=== PATIENT | male | born 1945 | race Caucasian/White ===

== ENCOUNTER 2017-02-10 10:17 | Emergency (ER) | payer OTHER ==
[2017-02-10] VITALS (7 sets, daily range): BP systolic 99–137; BP diastolic 53–67; PULSE 48–52; RESP 16–20; TEMP 97.6; O2SAT 97–99
[~2017-02-10] VITALS: Ht 172.7 cm; Wt 90.0 kg
[~2017-02-10 10:17] MED LIST: ACET325 PO; ATOR10 PO; BUTA1CAP8 PO; CARV6.252 PO; CHOL1CAP6 PO; CLON-352 PO; DIVA250ER PO; DUONI NEB; GABA300C3 PO; HYDR-2768 PO; LEVA500T PO; LISI-363 PO; OMEP20TA39 PO; PRED20 PO; TRAZ100 PO; ULTR50TA PO; WARF-60 PO; WELL150T PO; Z.0.OXYGENDME NC; ZOLO50TA PO
--- NOTE | 2017-02-10 10:51 | PD ---
HPI Chief Complaint: Dizziness Time Seen by Provider: 10:51 Travel History International Travel<30 days: No Contact w/Intl Traveler<30days: No Traveled to known affect area: No History of Present Illness HPI 71-year-old male with history of CVA, most recently last week, currently on warfarin, hypertension, COPD, presents to the emergency department for evaluation of acute onset headache at 4 AM this morning that has persisted throughout the day. It has not worsened. Patient was seen and evaluated and his primary care provider's office today and was noted to be quite hypotensive. He was sent here by [facility] for further evaluation of this. Patient states that he has been dizzy and his blood pressure has been running low. Patient does take amlodipine, hydrochlorothiazide, lisinopril, and metoprolol daily. He has taken his medications as prescribed. He denies a chest tightness. No difficulty breathing. No nausea or vomiting. No other symptoms to report. PFSH Past Medical History Hx Anticoagulant Therapy: Yes Arthritis: Yes Cancer: No Cardiovascular Problems: Yes High Cholesterol: Yes Congestive Heart Failure: No COPD: Yes Cerebrovascular Accident: Yes Coronary Artery Disease: No Diabetes: No Diminished Hearing: Yes ([employer] [place]) Endocrine: No Genitourinary: No Headaches: Yes Hypertension: Yes Immune Disorder: No Musculoskeletal: Yes Neurologic: Yes Psychiatric: No Reproductive: No Respiratory: Yes Immunizations Current: No Migraines: Yes Sleep Apnea: Yes Past Surgical History Abdominal Surgery: Yes (JOSEF. INGUINAL,VENTRAL HERNIAPLASTY) Pacemaker: No Other Surgery: Yes (G- TUBE PLACED 02/09/13) Social History Alcohol Use: No (QUIT 10 YEARS AGO) Tobacco Use: No (QUIT 10 YEARS AGO) Substance Use: No Allergies-Medications (Allergen,Severity, Reaction): Coded Allergies: No Known Allergies (Unverified , 02/10/17) Reported Meds & Prescriptions Reported Meds & Active Scripts Active Keflex (Cephalexin) 500 Mg Cap 500 Mg PO Q12H 7 Days Reported Warfarin 7.5 Mg Tab 7.5 Mg PO DAILY Warfarin 5 Mg Tab 5 Mg PO DAILY Trazodone (Trazodone HCl) 100 Mg Tablet 100 Mg PO HS Sertraline (Sertraline HCl) 100 Mg Tab 150 Mg PO DAILY Omeprazole 40 Mg Cap 40 Mg PO DAILY Mirtazapine 7.5 Mg Tab 7.5 Mg PO HS Metoprolol Tartrate 25 Mg Tab 25 Mg PO BID Lisinopril 40 Mg Tab 40 Mg PO DAILY Labetalol (Labetalol HCl) 200 Mg Tab 200 Mg PO DAILY Hydroxyzine HCl 10 Mg Tab 10 Mg PO TID Hydrochlorothiazide 25 Mg Tab 25 Mg PO DAILY Bupropion HCl ER 24 HR (Bupropion HCl) 150 Mg Tab 150 Mg PO DAILY Symbicort Inh (Budesonide/Formoterol Fumarate) 160-4.5 Mcg/Act Aero 2 Puff INH Q12HR Aspirin 81 Mg Chew 81 Mg CHEW DAILY Combivent Respimat Inh (Ipratropium-Albuterol Inh) 20-100 [facility]/Act Aero 1 Puff INH QID Percocet (Oxycodone-Acetaminophen) 5-325 mg Tab 1 Tab PO DAILY PRN Hydrocortisone-Pramoxine Rectal 1-1% Cream 1 Applic RECTAL QID PRN Advair Hfa 12 GM Inh (Fluticasone-Salmeterol 12 GM Inh) 115-21 Mcg/Act Aer 2 Puff INH BID Review of Systems Except as stated in HPI: all other systems reviewed are Neg Physical Exam Narrative GENERAL: Well-nourished male patient, lying in bed, in no acute distress SKIN: Focused skin assessment warm/dry. HEAD: Atraumatic. Normocephalic. EYES: Pupils equal and round. No scleral icterus. No injection or drainage. ENT: No nasal bleeding or discharge. Mucous membranes pink and moist. NECK: Trachea midline. No JVD. CARDIOVASCULAR: Regular rate and rhythm. RESPIRATORY: No accessory muscle use. Clear to auscultation. Breath sounds equal bilaterally. GASTROINTESTINAL: Abdomen soft, non-tender, nondistended. Hepatic and splenic margins not palpable. MUSCULOSKELETAL: No obvious deformities. No clubbing. No cyanosis. No edema. Left-sided weakness on examination. NEUROLOGICAL: Awake and alert. No obvious cranial nerve deficits. Motor grossly within normal limits. Normal speech. PSYCHIATRIC: Appropriate mood and affect; insight and judgment normal. Data Data Last Documented VS Vital Signs Date Time Temp Pulse Resp B/P Pulse Ox O2 Delivery O2 Flow Rate FiO2 02/10/17 15:54 64 17 137/63 97 02/10/17 11:30 Room Air 02/10/17 10:34 97.6 Orders Electrocardiogram (02/10/17 10:49) Prothrombin Time / Inr (Pt) (02/10/17 10:49) Act Partial Throm Time (Ptt) (02/10/17 10:49) Complete Blood Count With Diff (02/10/17 10:49) Comprehensive Metabolic Panel (02/10/17 10:49) Creatine Kinase (Cpk) (02/10/17 10:49) Drug Screen, Random Urine (02/10/17 10:49) Troponin I (02/10/17 10:49) Urinalysis - C+S If Indicated (02/10/17 10:49) Ct Brain W/O Iv Contrast(Rout) (02/10/17 10:49) Chest, Single Ap (02/10/17 10:49) Ecg Monitoring (02/10/17 10:49) Iv Access Insert/Monitor (02/10/17 10:49) Oximetry (02/10/17 10:49) Sodium Chloride 0.9% Flush (Ns Flush) (02/10/17 11:00) Sodium Chlor 0.9% 1000 Ml Inj (Ns 1000 M (02/10/17 11:00) Dexamethasone Inj (Decadron Inj) (02/10/17 11:30) Magnesium Sulfate 1 Gm Premix (Magnesium (02/10/17 12:30) Ketorolac Inj (Toradol Inj) (02/10/17 12:30) Metoclopramide Inj (Reglan Inj) (02/10/17 12:30) Diphenhydramine Inj (Benadryl Inj) (02/10/17 12:30) Orthostatic Vital Signs (02/10/17 12:35) Potassium Chloride (Kcl) (02/10/17 13:00) Urine Culture (02/10/17 13:40) Ceftriaxone Inj (Rocephin Inj) (02/10/17 14:27) Labs Laboratory Tests Test 02/10/17 02/10/17 02/10/17 11:00 11:45 13:40 White Blood Count 7.4 TH/MM3 Red Blood Count 4.15 MIL/MM3 Hemoglobin 12.5 GM/DL Hematocrit 37.6 % Mean Corpuscular Volume 90.7 FL Mean Corpuscular Hemoglobin 30.2 PG Mean Corpuscular Hemoglobin 33.3 % Concent Red Cell Distribution Width 14.3 % Platelet Count 248 TH/MM3 Mean Platelet Volume 7.6 FL Neutrophils (%) (Auto) 49.5 % Lymphocytes (%) (Auto) 32.5 % Monocytes (%) (Auto) 10.8 % Eosinophils (%) (Auto) 3.6 % Basophils (%) (Auto) 3.6 % Neutrophils # (Auto) 3.7 TH/MM3 Lymphocytes # (Auto) 2.4 TH/MM3 Monocytes # (Auto) 0.8 TH/MM3 Eosinophils # (Auto) 0.3 TH/MM3 Basophils # (Auto) 0.3 TH/MM3 CBC Comment DIFF FINAL Differential Comment Prothrombin Time 13.4 SEC Prothromb Time International 1.2 RATIO Ratio Activated Partial 28.3 SEC Thromboplast Time Sodium Level 140 MEQ/L Potassium Level 3.3 MEQ/L Chloride Level 106 MEQ/L Carbon Dioxide Level 24.1 MEQ/L Anion Gap 10 MEQ/L Blood Urea Nitrogen 28 MG/DL Creatinine 1.54 MG/DL Estimat Glomerular Filtration 45 ML/MIN Rate Random Glucose 94 MG/DL Calcium Level 8.8 MG/DL Total Bilirubin 0.3 MG/DL Aspartate Amino Transf 14 U/L (AST/SGOT) Alanine Aminotransferase 24 U/L (ALT/SGPT) Alkaline Phosphatase 52 U/L Total Creatine Kinase 78 U/L Troponin I LESS THAN 0.02 NG/ML Total Protein 7.6 GM/DL Albumin 3.8 GM/DL Urine Color YELLOW Urine Turbidity CLEAR Urine pH 5.5 Urine Specific [place] 1.029 Urine Protein TRACE mg/dL Urine Glucose (UA) NEG mg/dL Urine Ketones NEG mg/dL Urine Occult Blood NEG Urine Nitrite NEG Urine Bilirubin NEG Urine Urobilinogen LESS THAN 2.0 MG/DL Urine Leukocyte Esterase MOD Urine RBC 1 /hpf Urine WBC 9 /hpf Urine Bacteria OCC /hpf Urine Hyaline Casts 14 /lpf Urine Mucus FEW /lpf Microscopic Urinalysis Comment CULTURE INDICATED Urine Opiates Screen NEG Urine Barbiturates Screen POS Urine Amphetamines Screen NEG Urine Benzodiazepines Screen NEG Urine Cocaine Screen NEG Urine Cannabinoids Screen NEG MDM Medical Decision Making Medical Screen Exam Complete: Yes Emergency Medical Condition: Yes Medical Record Reviewed: Yes Differential Diagnosis Hypotension versus fluid deficit versus medication side effect versus sepsis versus electrolyte abnormality Narrative Course 71-year-old male presents to the emergency department for evaluation. Patient appears without distress. He is hypotensive here in the emergency department. Patient was given IV fluids and responds well to this. CBC is without acute concern. CMP is a mild hypokalemia 3.3. BUN is 28 with a creatinine 1.54. Patient was given additional IV fluids. Troponin is less than 0.02. Toxicology is positive for barbiturates. INR subtherapeutic at 1.2. Urinalysis is moderate leukocyte esterase, 9:30 BC, occasional bacteria and few mucus. Last Impressions Head CT 02/10/17 1049 Signed Impressions: Service Date/Time: Friday, February 10, 2017 11:56 - CONCLUSION: 1. No acute hemorrhage, mass or evidence of acute infarction. 2. Stable old lacunar infarcts in the basal ganglia. South Watkins MD Chest X-Ray 02/10/17 1049 Signed Impressions: Service Date/Time: Friday, February 10, 2017 10:56 - CONCLUSION: Streaky opacity the lung bases most consistent with atelectasis. South Watkins MD I discussed the patient my attending physician. Patient will be discharged home on oral antibiotic. He is encouraged to follow-up with his primary care provider. I have spoken with Miss Pan by Dr. Machuca's office and patient has an appointment at 3 PM on Wednesday for follow-up. Patient is informed of this. They agreed return immediately with any acute worsening of symptoms. Diagnosis Primary Impression: Hypotension Qualified Code: I95.9 - Hypotension, unspecified hypotension type Additional Impressions: Dehydration UTI (urinary tract infection) Qualified Code: N39.0 - Urinary tract infection without hematuria, site unspecified Referrals: Primary Care Physician Patient Instructions: Dehydration (ED), General Instructions, Hypotension (ED) Additional Instructions: You have an appointment with Dr. Don on Wednesday at 3:00 PM. Please sign a waiver for medical records to be delivered to Dr. Don prior to this or picked him up from her medical records Intake inadequate oral hydration Start antibiotic tomorrow morning and take it until it is all gone Return immediately with any acute worsening of symptoms Med/Other Pt SpecificInfo: Prescription(s) given Scripts Cephalexin (Keflex)500 Mg [id number] Mg PO Q12H 7 Days Ref 0 Prov:Bessie Hawkins 02/10/17 Disposition: DISCHARGE HOME Condition: Stable Bessie Hawkins Feb 10, 2017 10:51
[2017-02-10] MEDS ORDERED: SODIUM CHLOR 0.9% 1000 ML INJ 1,000 ML IV ONE (11:00)
[2017-02-10] MEDS ORDERED: SODIUM CHLORIDE 0.9% FLUSH 10 ML FLUSH IVF PRN (11:00)
[2017-02-10 11:26] LABS: AUTOMATED NEUTROPHIL # 3.7 TH/MM3 (1.8-7.7); BASOPHIL # 0.3 TH/MM3 (0-0.2); BASOPHIL % 3.6 % (0.0-2.0); EOSINOPHIL # 0.3 TH/MM3 (0-0.4); EOSINOPHIL % 3.6 % (0.0-4.0); HEMATOCRIT 37.6 % (39.0-51.0); HEMO FLAGS DIFF FINAL; LYMPH % 32.5 % (9.0-44.0); LYMPHOCYTE # 2.4 TH/MM3 (1.0-4.8); MEAN CELL VOLUME 90.7 FL (80.0-100.0); MEAN CORPUSCULAR HEMOGLOBIN 30.2 PG (27.0-34.0); MEAN CORPUSCULAR HGB CONC 33.3 % (32.0-36.0); MONO % 10.8 % (0.0-8.0); NEUT % 49.5 % (16.0-70.0); PLATELET COUNT 248 TH/MM3 (150-450); RED BLOOD COUNT 4.15 MIL/MM3 (4.50-5.90); RED CELL DISTRIBUTION WIDTH 14.3 % (11.6-17.2); WHITE BLOOD COUNT 7.4 TH/MM3 (4.0-11.0)
[2017-02-10] MEDS ORDERED: DEXAMETHASONE SOD PHOS 4 MG/ML VIAL IV PUSH ONE (11:30)
[2017-02-10 11:35] LABS: APTT (PATIENT) 28.3 SEC (24.3-30.1); INTERNATIONAL NORMALIZED RATIO 1.2 RATIO; PROTHROMBIN TIME - PATIENT 13.4 SEC (9.8-11.6)
[2017-02-10] MEDS ORDERED: METO25TA3 PO (12:01)
[2017-02-10] MEDS ORDERED: BUPR150T3 PO (12:01)
[2017-02-10] MEDS ORDERED: MIRT1TAB PO (12:01)
[2017-02-10] MEDS ORDERED: WARF-23 PO (12:01)
[2017-02-10] MEDS ORDERED: OMEP40CA2 PO (12:01)
[2017-02-10] MEDS ORDERED: HYDR-755 PO (12:01)
[2017-02-10] MEDS ORDERED: SERT-129 PO (12:01)
[2017-02-10] MEDS ORDERED: LISI40TA PO (12:01)
[2017-02-10] MEDS ORDERED: PERC5TAB12 PO (12:01)
[2017-02-10] MEDS ORDERED: WARF-21 PO (12:01)
[2017-02-10] MEDS ORDERED: HYDR25TA5 PO (12:01)
[2017-02-10] MEDS ORDERED: TRAZ100T6 PO (12:01)
[2017-02-10] MEDS ORDERED: HYDR1CRE RECTAL (12:01)
[2017-02-10] MEDS ORDERED: IPRAAER INH (12:01)
[2017-02-10] MEDS ORDERED: ADVA115A INH (12:01)
[2017-02-10] MEDS ORDERED: LABE200T2 PO (12:01)
[2017-02-10] MEDS ORDERED: ASPI81CH CHEW (12:01)
[2017-02-10] MEDS ORDERED: SYMB160A INH (12:01)
--- NOTE | 2017-02-10 12:11 | RADRPT ---
EXAM DATE/TIME: 02/10/2017 10:56 [facility] COMPARISON: CHEST SINGLE AP, October 11, 2015, 21:17. INDICATIONS : Headache, dizziness, and low blood pressure. MEDICAL HISTORY : Hypertension. Chronic obstructive pulmonary disease. SURGICAL HISTORY : Inguinal hernia repair. G-tube. ENCOUNTER: Initial ACUITY: 2 days PAIN SCORE: 0/10 LOCATION: Bilateral chest FINDINGS: A single view of the chest demonstrates the lungs to be symmetrically aerated without evidence of mas s, confluent infiltrate or effusion. Streaky opacity at the lung bases. The cardiomediastinal contou rs are unremarkable. Osseous structures are intact. CONCLUSION: Streaky opacity the lung bases most consistent with atelectasis. South Watkins MD on February 10, 2017 at 12:09 Board Certified Radiologist. This report was verified electronically.
--- NOTE | 2017-02-10 12:25 | RADRPT ---
EXAM DATE/TIME: 02/10/2017 11:56 [facility] COMPARISON: CT BRAIN W/O CONTRAST, November 06, 2013, 16:39. INDICATIONS : Dizzy, trouble swallowing and headache. RADIATION DOSE: 34.71 CTDIvol (mGy) MEDICAL HISTORY : Cerebrovascular disease. Hypertension. SURGICAL HISTORY : None. ENCOUNTER: Initial ACUITY: 1 day PAIN SCALE: 7/10 LOCATION: cranial TECHNIQUE: Multiple contiguous axial images were obtained of the head. Using automated exposure control and adj ustment of the mA and/or kV according to patient size, radiation dose was kept as low as reasonably a chievable to obtain optimal diagnostic quality images. DICOM format image data is available electro nically for review and comparison. FINDINGS: CEREBRUM: The ventricles are normal for age. No evidence of midline shift, mass lesion, hemorrhage or acute in farction. There are stable old lacunar infarcts in the basal ganglia. No extra-axial fluid collection s are seen. POSTERIOR FOSSA: The cerebellum and brainstem are intact. The 4th ventricle is midline. The cerebellopontine angle i s unremarkable. EXTRACRANIAL: The visualized portion of the orbits is intact. SKULL: The calvaria is intact. No evidence of skull fracture. CONCLUSION: 1. No acute hemorrhage, mass or evidence of acute infarction. 2. Stable old lacunar infarcts in the basal ganglia. South Watkins MD on February 10, 2017 at 12:20 Board Certified Radiologist. This report was verified electronically.
[2017-02-10] MEDS ORDERED: KETOROLAC TROMETHAMINE 30 MG/ML (IVP) VIAL IV PUSH ONE (12:30)
[2017-02-10] MEDS ORDERED: MAGNESIUM SULFATE 1 GM PREMIX 100 ML IV ONE (12:30)
[2017-02-10] MEDS ORDERED: diphenhydrAMINE HCL 50 MG/ML VIAL IV PUSH ONE (12:30)
[2017-02-10] MEDS ORDERED: METOCLOPRAMIDE HCL 10 MG/2 ML VIAL IV PUSH ONE (12:30)
[2017-02-10 12:34] LABS: ALT (GPT) 24 U/L (12-78); ANION GAP 10 MEQ/L (5-15); AST (GOT) 14 U/L (15-37); BICARBONATE 24.1 MEQ/L (21.0-32.0); BLOOD UREA NITROGEN 28 MG/DL (7-18); CHLORIDE 106 MEQ/L (98-107); GLOMERULAR FILTRATION RATE 45 ML/MIN (>89); POTASSIUM 3.3 MEQ/L (3.5-5.1); SODIUM (NA) 140 MEQ/L (136-145)
[2017-02-10 12:38] LABS: ALKALINE PHOSPHATASE 52 U/L (45-117); TOTAL BILIRUBIN ADULT 0.3 MG/DL (0.2-1.0)
[2017-02-10 12:39] LABS: CREATINE KINASE 78 U/L (39-308)
[2017-02-10] MEDS ORDERED: POTASSIUM CHLORIDE 10 MEQ CONTROLLED RELEASE TAB PO ONE (13:00)
[2017-02-10 14:16] LABS: BACTERIA, URINE OCC /hpf; BLOOD, URINE NEG (NEG); COMMENT (UR) CULTURE INDICATED; CULTURE IF INDICATED CULTURE INDICATED; GLUCOSE,URINE NEG (NEG); HYALINE CAST, URINE 14 /lpf (RARE); KETONE, URINE NEG (NEG); MUCUS URINE FEW /lpf (OCC); NITRITE,URINE NEG (NEG); PH, URINE 5.5 (5.0-8.5); URINE COLOR YELLOW (YELLW/STRAW)
[2017-02-10] MEDS ORDERED: cefTRIAXone INJ 1,000 MG in SODIUM CHLORIDE 0.9% INJ 100 ML IV STA (14:27)
[2017-02-10] MEDS ORDERED: CEPH-460 PO (14:37)
--- NOTE | 2017-02-11 09:25 | EKG ---
Date Performed: 02/10/2017 Time Performed: 10:54:44 PTAGE: 71 years EKG: SINUS BRADYCARDIA NONSPECIFIC T-WAVE ABNORMALITY BORDERLINE ECG PREVIOUS TRACING : 10/11/2015 21.08 COMPARED TO THE PREVIOUS EKG SINUS BRADYCARDIA IS NEW DOCTOR: Wes Darenll Interpretating Date/Time 02/11/2017 09:11:19
== END 2017-02-10 16:04 | disposition home or self-care (01) ==
LOC: NEPD 10:17
DX: I95.9 Hypotension, unspecified (principal); E86.0 Dehydration; N39.0 Urinary tract infection, site not specified; R13.10 Dysphagia, unspecified; R00.1 Bradycardia, unspecified; J44.9 Chronic obstructive pulmonary disease, unspecified; I10 Essential (primary) hypertension; J98.11 Atelectasis; E78.00 Pure hypercholesterolemia, unspecified; H91.90 Unspecified hearing loss, unspecified ear; Z79.01 Long term (current) use of anticoagulants
CPT/HCPCS: 70450; 71010; 80053; 80307; 81001; 82550; 84484; 85025; 85610; 85730; 87086; 93005; 96361; 96365; 96367; 96375; 99285; J0696; J1100; J1200; J1885; J2765; J3475; J7030

== ENCOUNTER 2017-09-29 12:43 | Emergency (ER) | payer OTHER ==
[~2017-09-29] VITALS: Ht 170.2 cm; Wt 125.0 kg
[~2017-09-29 12:43] MED LIST changes: -ACET325 PO; +ADVA115A INH; +ASPI-516 CHEW; -ATOR10 PO; +BUPR150T3 PO; -BUTA1CAP8 PO; -CARV6.252 PO; +CEPH-460 PO; -CHOL1CAP6 PO; -CLON-352 PO; -DIVA250ER PO; -DUONI NEB; -GABA300C3 PO; -HYDR-2768 PO; +HYDR-755 PO; +HYDR1CRE RECTAL; +HYDR25TA5 PO; +IPRAAER INH; +LABE200T2 PO; -LEVA500T PO; -LISI-363 PO; +LISI40TA PO; +METO25TA3 PO; +MIRT1TAB PO; -OMEP20TA39 PO; +OMEP40CA2 PO; +PERC5TAB12 PO; -PRED20 PO; +SERT-129 PO; +SYMB160A INH; -TRAZ100 PO; +TRAZ100T10 PO; -ULTR50TA PO; +WARF-21 PO; +WARF-23 PO; -WARF-60 PO; -WELL150T PO; -Z.0.OXYGENDME NC; -ZOLO50TA PO
[2017-09-29 13:00] VITALS: BP 140/81; PULSE 59; RESP 16; TEMP 98; O2SAT 95; O2SAT 97
--- NOTE | 2017-09-29 13:03 | PD ---
HPI Chief Complaint: Psychiatric Symptoms Time Seen by Provider: 12:50 Travel History International Travel<30 days: No Contact w/Intl Traveler<30days: No History of Present Illness HPI 72-year-old male patient of the [place] presents emergency department with suicidal ideation. Patient states chronic severe lower jaw dental pain for months. [facility] and once again they gave him the runaround, and he threatened to kill himself with a gun if they did not help him. [facility] called [facility] who then went and got the patient brought him in under the [place] act. Patient is noted to have a cane, but he denies any other acute medical problems other than his lower dental pain. He states this pain has been chronic for months. Pain is 9 out of 10. He denies any other acute medical issues. He has no known drug allergies. PFSH Past Medical History Hx Anticoagulant Therapy: Yes Arthritis: Yes Cancer: No Cardiovascular Problems: Yes High Cholesterol: Yes Congestive Heart Failure: No COPD: Yes Cerebrovascular Accident: Yes Coronary Artery Disease: No Diabetes: No Diminished Hearing: Yes ([facility]) Endocrine: No Genitourinary: No Headaches: Yes Hypertension: Yes Immune Disorder: No Musculoskeletal: Yes Neurologic: Yes Psychiatric: No Reproductive: No Respiratory: Yes Immunizations Current: No Migraines: Yes Sleep Apnea: Yes Past Surgical History Abdominal Surgery: Yes (JOSEF. INGUINAL,VENTRAL HERNIAPLASTY) Pacemaker: No Other Surgery: Yes (G- TUBE PLACED 02/09/13) Social History Alcohol Use: No (QUIT 10 YEARS AGO) Tobacco Use: No (QUIT 10 YEARS AGO) Substance Use: No Allergies-Medications (Allergen,Severity, Reaction): Coded Allergies: No Known Allergies (Unverified , 02/10/17) Reported Meds & Prescriptions Reported Meds & Active Scripts Active Keflex (Cephalexin) 500 Mg Cap 500 Mg PO Q12H 7 Days Reported Warfarin 7.5 Mg Tab 7.5 Mg PO DAILY Warfarin 5 Mg Tab 5 Mg PO DAILY Trazodone (Trazodone HCl) 100 Mg Tablet 100 Mg PO HS Sertraline (Sertraline HCl) 100 Mg Tab 150 Mg PO DAILY Omeprazole 40 Mg Cap 40 Mg PO DAILY Mirtazapine 7.5 Mg Tab 7.5 Mg PO HS Metoprolol Tartrate 25 Mg Tab 25 Mg PO BID Lisinopril 40 Mg Tab 40 Mg PO DAILY Labetalol (Labetalol HCl) 200 Mg Tab 200 Mg PO DAILY Hydroxyzine HCl 10 Mg Tab 10 Mg PO TID Hydrochlorothiazide 25 Mg Tab 25 Mg PO DAILY Bupropion HCl ER 24 HR (Bupropion HCl) 150 Mg Tab 150 Mg PO DAILY Symbicort Inh (Budesonide/Formoterol Fumarate) 160-4.5 Mcg/Act Aero 2 Puff INH Q12HR Aspirin 81 Mg Chew 81 Mg CHEW DAILY Combivent Respimat Inh (Ipratropium-Albuterol Inh) 20-100 [facility]/Act Aero 1 Puff INH QID Percocet (Oxycodone-Acetaminophen) 5-325 mg Tab 1 Tab PO DAILY PRN Hydrocortisone-Pramoxine Rectal 1-1% Cream 1 Applic RECTAL QID PRN Advair Hfa 12 GM Inh (Fluticasone-Salmeterol 12 GM Inh) 115-21 Mcg/Act Aer 2 Puff INH BID Review of Systems Except as stated in HPI: all other systems reviewed are Neg General / Constitutional: No: Fever, Chills Eyes: No: Visual changes HENT: Positive: Dental Difficulties, No: Headaches, Vertigo, Lightheadedness, Sore Throat, Rhinitis, Rhinorrhea, Congestion, Nosebleed, Neck Stiffness, Neck Pain, Gingival Bleeding, Ear Discharge, Earache Cardiovascular: No: Chest Pain or Discomfort Respiratory: No: Shortness of Breath Gastrointestinal: No: Abdominal Pain Genitourinary: No: Dysuria Musculoskeletal: No: Pain Skin: No Rash Neurologic: No: Weakness Psychiatric: No: Depression Endocrine: No: Polydipsia Hematologic/Lymphatic: No: Easy Bruising Physical Exam Narrative GENERAL: Patient appears somewhat disheveled, and uncomfortable. SKIN: Warm and dry. Normal color. Normal turgor. Patient is a small abrasion to the left dorsal lateral wrist from the handcuffs. HEAD: Atraumatic. Normocephalic. EYES: Pupils equal and round. No scleral icterus. No injection or drainage. ENT: No nasal bleeding or discharge. Mucous membranes pink and moist. Patient has fairly poor dental health with obvious gingivitis without obvious signs of dental infection. Pharynx is clear. Airways patent. NECK: Trachea midline. Supple and nontender without significant lymphadenopathy. CARDIOVASCULAR: Regular rate and rhythm. RESPIRATORY: No accessory muscle use. Clear to auscultation. Breath sounds equal bilaterally. GASTROINTESTINAL: Abdomen soft, non-tender, nondistended. Hepatic and splenic margins not palpable. MUSCULOSKELETAL: Extremities without clubbing, cyanosis, or edema. No obvious deformities. NEUROLOGICAL: Awake and alert. No obvious cranial nerve deficits. Motor grossly within normal limits. Five out of 5 muscle strength in the arms and legs. Normal speech. PSYCHIATRIC: Appropriate mood and affect; insight and judgment normal. Data Data Orders Orders Complete Blood Count With Diff (09/29/17 13:03) Comprehensive Metabolic Panel (09/29/17 13:03) Thyroid Stimulating Hormone (09/29/17 13:03) Psych Screen (09/29/17 13:03) Drug Screen, Random Urine (09/29/17 13:03) Alcohol (Ethanol) (09/29/17 13:03) Acetamin-Hydrocod 325-5 Mg ([place] 5-325 (09/29/17 13:15) Labs Laboratory Tests Test 09/29/17 13:09 White Blood Count 7.6 TH/MM3 Red Blood Count 4.45 MIL/MM3 Hemoglobin 13.3 GM/DL Hematocrit 38.8 % Mean Corpuscular Volume 87.2 FL Mean Corpuscular Hemoglobin 29.9 PG Mean Corpuscular Hemoglobin Concent 34.2 % Red Cell Distribution Width 12.9 % Platelet Count 221 TH/MM3 Mean Platelet Volume 8.1 FL Neutrophils (%) (Auto) 56.8 % Lymphocytes (%) (Auto) 25.8 % Monocytes (%) (Auto) 10.8 % Eosinophils (%) (Auto) 4.6 % Basophils (%) (Auto) 2.0 % Neutrophils # (Auto) 4.3 TH/MM3 Lymphocytes # (Auto) 2.0 TH/MM3 Monocytes # (Auto) 0.8 TH/MM3 Eosinophils # (Auto) 0.3 TH/MM3 Basophils # (Auto) 0.2 TH/MM3 CBC Comment DIFF FINAL Differential Comment Blood Urea Nitrogen 20 MG/DL Creatinine 1.22 MG/DL Random Glucose 104 MG/DL Albumin 4.0 GM/DL Calcium Level 8.9 MG/DL Aspartate Amino Transf (AST/SGOT) 27 U/L Alanine Aminotransferase (ALT/SGPT) 33 U/L Sodium Level 141 MEQ/L Potassium Level 3.6 MEQ/L Chloride Level 107 MEQ/L Carbon Dioxide Level 24.2 MEQ/L Anion Gap 10 MEQ/L Estimat Glomerular Filtration Rate 58 ML/MIN Ethyl Alcohol Level LESS THAN 3 MG/DL MDM Medical Decision Making Medical Screen Exam Complete: Yes Emergency Medical Condition: Yes Differential Diagnosis [place]. Suicidal ideation. Chronic dental pain. Narrative Course Patient is given Lortab 5/325 p.o. now. Labs are ordered per psychiatric protocol. Patient is medically screened for psychiatric evaluation. Psych screen is ordered. Diagnosis Primary Impression: Chronic dental pain Condition: Stable Samson Du Sep 29, 2017 13:03
[2017-09-29] MEDS ORDERED: ACETAMINOPHEN/HYDROcodone 325 MG/5 MG TAB PO ONE (13:15)
[2017-09-29 13:27] LABS: AUTOMATED NEUTROPHIL # 4.3 TH/MM3 (1.8-7.7); BASOPHIL # 0.2 TH/MM3 (0-0.2); EOSINOPHIL # 0.3 TH/MM3 (0-0.4); EOSINOPHIL % 4.6 % (0.0-4.0); HEMATOCRIT 38.8 % (39.0-51.0); HEMOGLOBIN 13.3 GM/DL (13.0-17.0); LYMPH % 25.8 % (9.0-44.0); MEAN CELL VOLUME 87.2 FL (80.0-100.0); MEAN CORPUSCULAR HEMOGLOBIN 29.9 PG (27.0-34.0); MEAN CORPUSCULAR HGB CONC 34.2 % (32.0-36.0); MEAN PLATELET VOLUME 8.1 FL (7.0-11.0); MONO % 10.8 % (0.0-8.0); MONOCYTE # 0.8 TH/MM3 (0-0.9); NEUT % 56.8 % (16.0-70.0); PLATELET COUNT 221 TH/MM3 (150-450); RED BLOOD COUNT 4.45 MIL/MM3 (4.50-5.90); RED CELL DISTRIBUTION WIDTH 12.9 % (11.6-17.2); WHITE BLOOD COUNT 7.6 TH/MM3 (4.0-11.0)
[2017-09-29 13:45] LABS: AST (GOT) 27 U/L (15-37); BICARBONATE 24.2 MEQ/L (21.0-32.0); BLOOD UREA NITROGEN 20 MG/DL (7-18); CALCIUM 8.9 MG/DL (8.5-10.1); CHLORIDE 107 MEQ/L (98-107); CREATININE 1.22 MG/DL (0.60-1.30); GLOMERULAR FILTRATION RATE 58 ML/MIN (>89); GLUCOSE,RANDOM 104 MG/DL (74-106); SODIUM (NA) 141 MEQ/L (136-145)
[2017-09-29 13:46] LABS: ALT (GPT) 33 U/L (12-78)
[2017-09-29 13:56] LABS: ALKALINE PHOSPHATASE 56 U/L (45-117); TOTAL BILIRUBIN ADULT 0.5 MG/DL (0.2-1.0); TOTAL PROTEIN 7.2 GM/DL (6.4-8.2)
[2017-09-29] MEDS ORDERED: TRAM50TA PO (16:57)
[2017-09-29] MEDS ORDERED: PENI500T PO (16:57)
--- NOTE | 2017-09-29 17:24 | PD ---
Data Data Last Documented VS Vital Signs Date Time Temp Pulse Resp B/P (MAP) Pulse Ox O2 Delivery O2 Flow Rate FiO2 09/29/17 13:00 98.0 59 16 140/81 (100) 95 Orders Orders Complete Blood Count With Diff (09/29/17 13:03) Comprehensive Metabolic Panel (09/29/17 13:03) Thyroid Stimulating Hormone (09/29/17 13:03) Psych Screen (09/29/17 13:03) Alcohol (Ethanol) (09/29/17 13:03) Acetamin-Hydrocod 325-5 Mg ([place] 5-325 (09/29/17 13:15) Ed Discharge Order (09/29/17 17:08) Labs Laboratory Tests Test 09/29/17 13:09 White Blood Count 7.6 TH/MM3 Red Blood Count 4.45 MIL/MM3 Hemoglobin 13.3 GM/DL Hematocrit 38.8 % Mean Corpuscular Volume 87.2 FL Mean Corpuscular Hemoglobin 29.9 PG Mean Corpuscular Hemoglobin Concent 34.2 % Red Cell Distribution Width 12.9 % Platelet Count 221 TH/MM3 Mean Platelet Volume 8.1 FL Neutrophils (%) (Auto) 56.8 % Lymphocytes (%) (Auto) 25.8 % Monocytes (%) (Auto) 10.8 % Eosinophils (%) (Auto) 4.6 % Basophils (%) (Auto) 2.0 % Neutrophils # (Auto) 4.3 TH/MM3 Lymphocytes # (Auto) 2.0 TH/MM3 Monocytes # (Auto) 0.8 TH/MM3 Eosinophils # (Auto) 0.3 TH/MM3 Basophils # (Auto) 0.2 TH/MM3 CBC Comment DIFF FINAL Differential Comment Blood Urea Nitrogen 20 MG/DL Creatinine 1.22 MG/DL Random Glucose 104 MG/DL Total Protein 7.2 GM/DL Albumin 4.0 GM/DL Calcium Level 8.9 MG/DL Alkaline Phosphatase 56 U/L Aspartate Amino Transf (AST/SGOT) 27 U/L Alanine Aminotransferase (ALT/SGPT) 33 U/L Total Bilirubin 0.5 MG/DL Sodium Level 141 MEQ/L Potassium Level 3.6 MEQ/L Chloride Level 107 MEQ/L Carbon Dioxide Level 24.2 MEQ/L Anion Gap 10 MEQ/L Estimat Glomerular Filtration Rate 58 ML/MIN Thyroid Stimulating Hormone 3rd Gen 2.740 uIU/ML Ethyl Alcohol Level LESS THAN 3 MG/DL [facility] Medical Record Reviewed: Yes Supervised Visit with GERTRUDE: Yes Narrative Course BA lifted by undersigned. scrips as below for dental complaints. Diagnosis Primary Impression: Chronic dental pain Referrals: [facility] ([facility]P) Patient Instructions: General Instructions, Toothache (ED) Departure Forms: Tests/Procedures Scripts Penicillin V Potassium (Penicillin V Potassium) 500 Mg Tab 500 MG PO Q8H for Infection for 7 Days, #21 TAB 0 Refills Prov: Choco Cornelius MD 09/29/17 Tramadol (Tramadol) 50 Mg Tab 100 MG PO Q6H Y for PAIN, #15 TAB 0 Refills Prov: Choco Cornelius MD 09/29/17 Condition: Stable Choco Cornelius MD Sep 29, 2017 17:24
--- NOTE | 2017-09-29 17:45 | PD ---
History of Present Illness Chief Complaint: Adjustment disorder Time Seen by Provider: 17:00 Travel History International Travel<30 Days: No Contact w/Intl Traveler<30days: No Known affected area: No Legal Status Legal Status: [place] Act History of Present Illness: This 72-year-old, , white male who presents under a [place] act for uttering a suicidal threat. Patient states that he has had a toothache for quite some time [facility]. He states that out of frustration he told them that if they "did not give me something for the pain I was going to shoot myself". His is present in the room with him they both report that he has made repeated attempts to try to deal with the dental pain to no avail. Patient reports previous diagnoses of PTSD. He denies being suicidal, homicidal, having auditory or visual hallucinations. I can elicit no delusional material. He is awake, alert, and oriented. His speech is muffled presumably due to his tooth pain however, he is perfectly understandable. His speech is logical and organized. His mood is anxious and his affect also is anxious again, due to the tooth pain. He states that he is "disgusted" with the treatment he has received from the [place] in regards to this malady. His reports that his firearm has been removed from the home. He denies any previous attempts at suicide. Patient evaluated by Dr. Cornelius who agrees that this patient does not meet Talam[place] act criteria and has lifted it. Patient will be provided with community dental resources. Furthermore, he is advised to return if his condition should worsen. PFSH Past Medical History Hx Anticoagulant Therapy: Yes Arthritis: Yes Cancer: No Cardiovascular Problems: Yes High Cholesterol: Yes Congestive Heart Failure: No COPD: Yes Cerebrovascular Accident: Yes Coronary Artery Disease: No Diabetes: No Diminished Hearing: Yes ([place]) Endocrine: No Genitourinary: No Headaches: Yes Hypertension: Yes Immune Disorder: No Musculoskeletal: Yes Neurologic: Yes Psychiatric: No Reproductive: No Respiratory: Yes Immunizations Current: No Migraines: Yes Sleep Apnea: Yes Past Surgical History Abdominal Surgery: Yes (JOSEF. INGUINAL,VENTRAL HERNIAPLASTY) Pacemaker: No Other Surgery: Yes (G- TUBE PLACED 02/09/13) Psychiatric History Psychiatric History Previous diagnosis of PTSD Guns or firearms in home: No (Removed from the home) Social History Lives with Hx Alcohol Use: No (QUIT 10 YEARS AGO) Hx Tobacco Use: No (QUIT 10 YEARS AGO) Hx Substance Use: No Allergies-Medications (Allergen,Severity, Reaction): Coded Allergies: No Known Allergies (Unverified , 02/10/17) Reported Meds & Prescriptions Reported Meds & Active Scripts Active Penicillin V Potassium 500 Mg Tab 500 Mg PO Q8H 7 Days Tramadol (Tramadol HCl) 50 Mg Tab 100 Mg PO Q6H PRN Keflex (Cephalexin) 500 Mg Cap 500 Mg PO Q12H 7 Days Reported Warfarin 7.5 Mg Tab 7.5 Mg PO DAILY Warfarin 5 Mg Tab 5 Mg PO DAILY Trazodone (Trazodone HCl) 100 Mg Tablet 100 Mg PO HS Sertraline (Sertraline HCl) 100 Mg Tab 150 Mg PO DAILY Omeprazole 40 Mg Cap 40 Mg PO DAILY Mirtazapine 7.5 Mg Tab 7.5 Mg PO HS Metoprolol Tartrate 25 Mg Tab 25 Mg PO BID Lisinopril 40 Mg Tab 40 Mg PO DAILY Labetalol (Labetalol HCl) 200 Mg Tab 200 Mg PO DAILY Hydroxyzine HCl 10 Mg Tab 10 Mg PO TID Hydrochlorothiazide 25 Mg Tab 25 Mg PO DAILY Bupropion HCl ER 24 HR (Bupropion HCl) 150 Mg Tab 150 Mg PO DAILY Symbicort Inh (Budesonide/Formoterol Fumarate) 160-4.5 Mcg/Act Aero 2 Puff INH Q12HR Aspirin 81 Mg Chew 81 Mg CHEW DAILY Combivent Respimat Inh (Ipratropium-Albuterol Inh) 20-100 Correction/Act Aero 1 Puff INH QID Percocet (Oxycodone-Acetaminophen) 5-325 mg Tab 1 Tab PO DAILY PRN Hydrocortisone-Pramoxine Rectal 1-1% Cream 1 Applic RECTAL QID PRN Advair Hfa 12 GM Inh (Fluticasone-Salmeterol 12 GM Inh) 115-21 Mcg/Act Aer 2 Puff INH BID Mental Status Examination Appearance: Appropriate Consciousness: Alert Orientation: x4 Motor Activity: Other (Sitting in chair) Speech: Other (Slightly garbled due to teeth pain) Language: Adequate Fund of Knowledge: Adequate Attention and Concentration: Adequate Memory: Unremarkable Mood: Anxious (Due to pain) Affect: Anxious (Due to dental pain) Thought Process & Associations: Intact Thought Content: Appropriate Hallucination Type: None Delusion Type: None Suicidal Ideation: No Suicidal Plan: No Suicidal Intention: No Homicidal Ideation: No Homicidal Plan: No Homicidal Intention: No Insight: Adequate Judgment: Adequate MDM Medical Decision Making Medical Record Reviewed: Yes Assessment/Plan This is a 72-year-old, , male who is brought in under Talam[place] act after uttering a suicidal threat while [facility] the [facility]. Patient states that he has been an extreme pain due to dental caries for quite some time. He reports that [facility] the [facility] today and attempt to get a resolution to his problem and was "once again given the run around". He admits to telling them that if they did not give him pain medicine he would shoot himself with his gun out of frustration. Patient lives with his . Denies any previous attempts at suicide. Does admit to a history of PTSD. His reports that she has removed a firearm from the home. Consulted Dr. Cornelius who evaluated this patient and lifted the Talam[place] act as he does not meet Talamantes act criteria, and does not appear to be an imminent danger to himself or anyone else. Patient provided with community resources for dental clinics as well as appropriate medication by medical staff. Patient advised to return if his condition should worsen. Orders Orders Complete Blood Count With Diff (09/29/17 13:03) Comprehensive Metabolic Panel (09/29/17 13:03) Thyroid Stimulating Hormone (09/29/17 13:03) Psych Screen (09/29/17 13:03) Drug Screen, Random Urine (09/29/17 13:03) Alcohol (Ethanol) (09/29/17 13:03) Acetamin-Hydrocod 325-5 Mg ([place] 5-325 (09/29/17 13:15) Ed Discharge Order (09/29/17 17:08) Results Vital Signs Date Time Temp Pulse Resp B/P (MAP) Pulse Ox O2 Delivery O2 Flow Rate FiO2 09/29/17 13:00 98.0 59 16 140/81 (100) 95 Laboratory Tests Test 4/4/18 13:09 White Blood Count 7.6 Red Blood Count 4.45 Hemoglobin 13.3 Hematocrit 38.8 Mean Corpuscular Volume 87.2 Mean Corpuscular Hemoglobin 29.9 Mean Corpuscular Hemoglobin Concent 34.2 Red Cell Distribution Width 12.9 Platelet Count 221 Mean Platelet Volume 8.1 Neutrophils (%) (Auto) 56.8 Lymphocytes (%) (Auto) 25.8 Monocytes (%) (Auto) 10.8 Eosinophils (%) (Auto) 4.6 Basophils (%) (Auto) 2.0 Neutrophils # (Auto) 4.3 Lymphocytes # (Auto) 2.0 Monocytes # (Auto) 0.8 Eosinophils # (Auto) 0.3 Basophils # (Auto) 0.2 CBC Comment DIFF FINAL Differential Comment Blood Urea Nitrogen 20 Creatinine 1.22 Random Glucose 104 Total Protein 7.2 Albumin 4.0 Calcium Level 8.9 Alkaline Phosphatase 56 Aspartate Amino Transf (AST/SGOT) 27 Alanine Aminotransferase (ALT/SGPT) 33 Total Bilirubin 0.5 Sodium Level 141 Potassium Level 3.6 Chloride Level 107 Carbon Dioxide Level 24.2 Anion Gap 10 Estimat Glomerular Filtration Rate 58 Thyroid Stimulating Hormone 3rd Gen 2.740 Ethyl Alcohol Level LESS THAN 3 Diagnosis Primary Impression: Adjustment disorder with anxious mood Additional Impression: Chronic dental pain Psychiatrically Cleared: Yes Referrals: [facility] ([facility] Departure Forms: Tests/Procedures Patient Instructions: General Instructions, Toothache (ED) Prescriptions Penicillin V Potassium (Penicillin V Potassium) 500 Mg Tab 500 MG PO Q8H for Infection for 7 Days, #21 TAB 0 Refills Prov: Choco Cornelius MD 09/29/17 Tramadol (Tramadol) 50 Mg Tab 100 MG PO Q6H Y for PAIN, #15 TAB 0 Refills Prov: Choco Cornelius MD 09/29/17 Condition: Stable Problem Qualifiers Maria Isabel Moeller Sep 29, 2017 17:45
== END 2017-09-29 17:13 | disposition home or self-care (01) ==
LOC: NEPD 12:43
DX: F43.22 Adjustment disorder with anxiety (principal); K08.89 Other specified disorders of teeth and supporting structures; G89.29 Other chronic pain; I10 Essential (primary) hypertension; E78.00 Pure hypercholesterolemia, unspecified; J44.9 Chronic obstructive pulmonary disease, unspecified; F43.10 Post-traumatic stress disorder, unspecified; Z86.73 Personal history of transient ischemic attack (TIA), and cerebral infarction without residual deficits; Z87.891 Personal history of nicotine dependence; Z79.01 Long term (current) use of anticoagulants; Z79.899 Other long term (current) drug therapy
CPT/HCPCS: 80053; 80307; 84443; 85025; 99283

== ENCOUNTER 2017-11-02 21:17 | Emergency (ER) | payer OTHER ==
[2017-11-02 22:36] LABS: HEMATOCRIT 37.9 % (39.0-51.0); HEMOGLOBIN 13.1 GM/DL (13.0-17.0); MEAN CORPUSCULAR HEMOGLOBIN 30.5 PG (27.0-34.0); MEAN CORPUSCULAR HGB CONC 34.6 % (32.0-36.0); MEAN PLATELET VOLUME 8.5 FL (7.0-11.0); PLATELET COUNT 301 TH/MM3 (150-450); WHITE BLOOD COUNT 9.1 TH/MM3 (4.0-11.0)
[2017-11-02 22:38] LABS: HEMO FLAGS AUTO DIFF
[2017-11-02 22:54] LABS: LACTIC ACID 1.2 mmol/L (0.4-2.0)
[2017-11-02 22:59] LABS: ALBUMIN 3.8 GM/DL (3.4-5.0); ALT (GPT) 27 U/L (12-78); ANION GAP 7 MEQ/L (5-15); APTT (PATIENT) 29.6 SEC (24.3-30.1); AST (GOT) 20 U/L (15-37); BICARBONATE 25.9 MEQ/L (21.0-32.0); BLOOD UREA NITROGEN 17 MG/DL (7-18); CALCIUM 8.2 MG/DL (8.5-10.1); CHLORIDE 109 MEQ/L (98-107); CREATININE 1.22 MG/DL (0.60-1.30); GLOMERULAR FILTRATION RATE 58 ML/MIN (>89); GLUCOSE,RANDOM 101 MG/DL (74-106); INTERNATIONAL NORMALIZED RATIO 1.5 RATIO; LIPASE 109 U/L (73-393); POTASSIUM 3.8 MEQ/L (3.5-5.1); PROTHROMBIN TIME - PATIENT 15.6 SEC (9.8-11.6); SODIUM (NA) 142 MEQ/L (136-145)
[2017-11-02 23:04] LABS: ALKALINE PHOSPHATASE 60 U/L (45-117); C-REACTIVE PROTEIN 0.86 MG/DL (0.00-0.30); TOTAL BILIRUBIN ADULT 0.5 MG/DL (0.2-1.0); TOTAL PROTEIN 7.3 GM/DL (6.4-8.2); TROPONIN I LESS THAN 0.02 NG/ML (0.02-0.05)
[2017-11-02 23:16] LABS: BASOPHILS 2 % (0-2); EOSINOPHILS 3 % (0-4); MONOCYTES 8 % (0-8); NEUTROPHIL # MANUAL DIFF 5.5 TH/MM3 (1.8-7.7); POLYS (SEG NEUTROPHILS) 60 % (16-70); WBC DIFF SAMPLE 100
[2017-11-02 23:17] LABS: LYMPHOCYTES 27 % (9-44); PLATELET ESTIMATE SMEAR NORMAL (NORMAL); PLATELET MORPHOLOGY NORMAL (NORMAL); SCAN/DIFF FINAL DIFF MANUAL
[2017-11-02] MEDS: SODIUM CHLOR 0.9% 250 ML INJ 250 ML IV (23:18)
[2017-11-02] MEDS: AMOXICILLIN/CLAVULANATE K 875 MG TAB PO (23:21)
[2017-11-02] MEDS: MORPHINE SULFATE 4 MG/ML INJ IV PUSH (23:21)
[2017-11-02] MEDS: ONDANSETRON HCL 4 MG/2 ML VIAL IV PUSH (23:21)
[2017-11-03] MEDS: IOHEXOL 350 MG/ML 10 ML VIAL (for RAD DIAG) IVCONTRAST (00:44)
[2017-11-03 00:48] LABS: BILIRUBIN, URINE NEG (NEG); BLOOD, URINE NEG (NEG); GLUCOSE,URINE NEG (NEG); KETONE, URINE NEG (NEG); MUCUS URINE FEW /lpf (OCC); NITRITE,URINE NEG (NEG); PH, URINE 5.5 (5.0-8.5); SQUAMOUS EPITHELIAL CELL URINE <1 /hpf (0-5); URINE COLOR YELLOW (YELLW/STRAW); URINE LEUKOCYTE ESTERASE TRACE (NEG)
[2017-11-03 00:49] LABS: COMMENT (UR) CULT NOT INDICATED; CULTURE IF INDICATED CULT NOT INDICATED
== END 2017-11-03 02:02 | disposition home or self-care (01) ==
LOC: NEPE 11-03 02:02
DX: K05.10 Chronic gingivitis, plaque induced (principal); K02.9 Dental caries, unspecified; K43.9 Ventral hernia without obstruction or gangrene; K76.0 Fatty (change of) liver, not elsewhere classified; J44.9 Chronic obstructive pulmonary disease, unspecified; I10 Essential (primary) hypertension; E78.00 Pure hypercholesterolemia, unspecified; E78.5 Hyperlipidemia, unspecified; Z86.73 Personal history of transient ischemic attack (TIA), and cerebral infarction without residual deficits; Z87.891 Personal history of nicotine dependence; Z79.82 Long term (current) use of aspirin; Z79.01 Long term (current) use of anticoagulants; Z79.899 Other long term (current) drug therapy
CPT/HCPCS: 71045; 74177; 80053; 81001; 83605; 83690; 84484; 85007; 85027; 85610; 85730; 86140; 96361; 96374; 96375; 99285-25

== ENCOUNTER 2017-11-30 11:32 | Emergency (ER) | payer OTHER ==
[~2017-11-30 11:32] MED LIST changes: +AUGM875T3 PO; -CEPH-460 PO; +HYDR-3516 PO; -LABE200T2 PO; -PERC5TAB12 PO; +TRAM50TA PO
[2017-11-30 11:42] VITALS: BP 110/86; PULSE 62; RESP 16; TEMP 98.7; O2SAT 91
[2017-11-30 12:02] VITALS: BP 106/58; PULSE 53; RESP 18; O2SAT 97
[2017-11-30] MEDS ORDERED: PIPERACIL-TAZO 4.5 GM PREMIX 100 ML IV STA (12:02)
[2017-11-30 12:10] VITALS: RESP 18; O2SAT 95
[2017-11-30] MEDS ORDERED: MORPHINE SULFATE 4 MG/ML INJ IV PUSH ONE (12:15)
[2017-11-30 12:30] LABS: AUTOMATED NEUTROPHIL # 6.3 TH/MM3 (1.8-7.7); BASOPHIL # 0.1 TH/MM3 (0-0.2); BASOPHIL % 1.2 % (0.0-2.0); EOSINOPHIL # 0.4 TH/MM3 (0-0.4); HEMATOCRIT 36.7 % (39.0-51.0); HEMOGLOBIN 12.2 GM/DL (13.0-17.0); LYMPH % 20.4 % (9.0-44.0); MEAN CELL VOLUME 88.1 FL (80.0-100.0); MEAN CORPUSCULAR HEMOGLOBIN 29.3 PG (27.0-34.0); MEAN CORPUSCULAR HGB CONC 33.3 % (32.0-36.0); MEAN PLATELET VOLUME 8.1 FL (7.0-11.0); MONOCYTE # 1.2 TH/MM3 (0-0.9); NEUT % 62.4 % (16.0-70.0); PLATELET COUNT 211 TH/MM3 (150-450); RED BLOOD COUNT 4.17 MIL/MM3 (4.50-5.90); RED CELL DISTRIBUTION WIDTH 13.5 % (11.6-17.2)
--- NOTE | 2017-11-30 12:43 | PD ---
HPI Chief Complaint: Oral / Dental Pain or Problem Time Seen by Provider: 12:02 Travel History International Travel<30 days: No Contact w/Intl Traveler<30days: No Traveled to known affect area: No History of Present Illness HPI 72-year-old male notes right lower facial pain and swelling for the past couple of days. He called his primary doctor yesterday who started him on clindamycin. He states the pain and swelling of gotten worse. He denies any vomiting or fever or other concurrent complaints. Quality pain is sharp. Severity severe per patient. He denies specific modifying factors at this time other than if you touch the area. PFSH Past Medical History Hx Anticoagulant Therapy: Yes Arthritis: Yes Cancer: No Cardiovascular Problems: Yes High Cholesterol: Yes Congestive Heart Failure: No COPD: Yes Cerebrovascular Accident: Yes Coronary Artery Disease: No Diabetes: No Diminished Hearing: Yes ([place]) Endocrine: No Gastrointestinal Disorders: No Genitourinary: No Headaches: Yes Hypertension: Yes Immune Disorder: No Implanted Vascular Access Dvce: No Musculoskeletal: Yes Neurologic: Yes Psychiatric: No Reproductive: No Respiratory: Yes Immunizations Current: No Migraines: Yes Sleep Apnea: Yes (does wear cpap) Past Surgical History Abdominal Surgery: Yes (JOSEF. INGUINAL,VENTRAL HERNIAPLASTY) Pacemaker: No Other Surgery: Yes (G- TUBE PLACED 02/09/13) Social History Alcohol Use: No (QUIT 10 YEARS AGO) Tobacco Use: No (QUIT 10 YEARS AGO) Substance Use: No Allergies-Medications (Allergen,Severity, Reaction): Coded Allergies: No Known Allergies (Unverified Adverse Reaction, Unknown, 11/02/17) Reported Meds & Prescriptions Reported Meds & Active Scripts Active Augmentin (Amoxicillin-Clavulanate) 875-125 Mg Tab 1 Tab PO BID 7 Days Hydrocodone-Acetaminophen 5-325 mg Tab 1 Tab PO Q6H PRN Reported Prazosin (Prazosin HCl) 2 Mg Cap 6 Mg PO HS Get up slowly to prevent falls Magnesium Oxide 400 Mg Tab 400 Mg PO BID Gabapentin 800 Mg Tab 400 Mg PO TID Diclofenac Topical 1% Gel 1 Applic TOPICAL TID Vitamin D-1000 (Cholecalciferol) 1,000 Unit Tab 1,000 Units PO DAILY Capsaicin Topical (Capsaicin) 0.025% Cream 1 Applic TOPICAL BID Apply to affected area on skin for joint pain-Do not use for skin problem-Avoid contact with eyes-Wash hands thoroughly after each use Lipitor (Atorvastatin Calcium) 40 Mg Tab 20 Mg PO HS Artificial Tears Opth Drops (Polyvinyl Alcohol) 1.4% Soln 2 Drop EACH EYE QID PRN Salivamax Powder Packet (Artificial Saliva Powder Packet) 1 Powderpack 1 Pkt SWISH-SPIT DIRECTED Norvasc (Amlodipine Besylate) 10 Mg Tab 10 Mg PO DAILY Ventolin Hfa 18 GM Inh (Albuterol Sulfate) 90 Mcg/Act Aer 2 Puff INH Q4H PRN Duoneb (Ipratropium-Albuterol Neb) 0.5-2.5 Mg/3 Ml Neb 3 Ml NEB QID PRN Warfarin 5 Mg Tab 7.5 Mg PO WEDNESDAY Omeprazole 20 Mg Tab 20 Mg PO DAILY PRN Mirtazapine 15 Mg Tab 15 Mg PO HS Warfarin 5 Mg Tab 5 Mg PO SUMOTUTHFRSA Take 1 tablet (5mg) daily excepts on Wednesdays Sertraline (Sertraline HCl) 100 Mg Tab 200 Mg PO DAILY Metoprolol Tartrate 25 Mg Tab 12.5 Mg PO BID Lisinopril 40 Mg Tab 20 Mg PO DAILY Hydroxyzine HCl 10 Mg Tab 20 Mg PO TID PRN May repeat dose after 25 minutes if no relief-can cause sedation Hydrochlorothiazide 25 Mg Tab 25 Mg PO DAILY Symbicort Inh (Budesonide/Formoterol Fumarate) 160-4.5 Mcg/Act Aero 2 Puff INH Q12HR Review of Systems Except as stated in HPI: all other systems reviewed are Neg Physical Exam Narrative GENERAL: 72-year-old male in no apparent distress SKIN: Focused skin assessment warm/dry. HEAD: Atraumatic. Moderate amount of swelling noted to right lower face without overlying cellulitis EYES: Pupils equal and round. No scleral icterus. No injection or drainage. ENT: No nasal bleeding or discharge. Mucous membranes pink and moist. Patient with multiple poor dentition. Especially to lower teeth without obvious periapical abscess NECK: Trachea midline. CARDIOVASCULAR: Regular rate and rhythm. RESPIRATORY: No accessory muscle use. Clear to auscultation. Breath sounds equal bilaterally. MUSCULOSKELETAL: No obvious deformities. No clubbing. No cyanosis. NEUROLOGICAL: Awake and alert. No obvious cranial nerve deficits. Motor grossly within normal limits. Normal speech. PSYCHIATRIC: Appropriate mood and affect; insight and judgment normal. Data Data Last Documented VS Vital Signs Date Time Temp Pulse Resp B/P (MAP) Pulse Ox O2 Delivery O2 Flow Rate FiO2 11/30/17 12:10 18 95 Nasal Cannula 2.00 11/30/17 12:02 53 11/30/17 11:42 98.7 92 on room air with h/o copd Orders Orders Ct Facial Bones W Iv Contrast (11/30/17 ) Complete Blood Count With Diff (11/30/17 12:02) Comprehensive Metabolic Panel (11/30/17 12:02) Lactic Acid Sepsis Protocol (11/30/17 12:02) Chest, Single Ap (11/30/17 12:02) Ecg Monitoring (11/30/17 12:02) Iv Access Insert/Monitor (11/30/17 12:02) Oximetry (11/30/17 12:02) Piperacil-Tazo 4.5 Gm Premix (Zosyn 4.5 (11/30/17 12:02) Morphine Inj (Morphine Inj) (11/30/17 12:15) Iohexol 350 Inj (Omnipaque 350 Inj) (11/30/17 13:20) Sodium Chlor 0.9% 1000 Ml Inj (Ns 1000 M (11/30/17 13:30) Ed Discharge Order (11/30/17 14:05) Labs Laboratory Tests Test 11/30/17 12:16 White Blood Count 10.0 TH/MM3 Red Blood Count 4.17 MIL/MM3 Hemoglobin 12.2 GM/DL Hematocrit 36.7 % Mean Corpuscular Volume 88.1 FL Mean Corpuscular Hemoglobin 29.3 PG Mean Corpuscular Hemoglobin Concent 33.3 % Red Cell Distribution Width 13.5 % Platelet Count 211 TH/MM3 Mean Platelet Volume 8.1 FL Neutrophils (%) (Auto) 62.4 % Lymphocytes (%) (Auto) 20.4 % Monocytes (%) (Auto) 12.0 % Eosinophils (%) (Auto) 4.0 % Basophils (%) (Auto) 1.2 % Neutrophils # (Auto) 6.3 TH/MM3 Lymphocytes # (Auto) 2.0 TH/MM3 Monocytes # (Auto) 1.2 TH/MM3 Eosinophils # (Auto) 0.4 TH/MM3 Basophils # (Auto) 0.1 TH/MM3 CBC Comment DIFF FINAL Differential Comment Blood Urea Nitrogen 20 MG/DL Creatinine 1.38 MG/DL Random Glucose 98 MG/DL Total Protein 6.7 GM/DL Albumin 3.4 GM/DL Calcium Level 8.7 MG/DL Alkaline Phosphatase 59 U/L Aspartate Amino Transf (AST/SGOT) 15 U/L Alanine Aminotransferase (ALT/SGPT) 23 U/L Total Bilirubin 0.5 MG/DL Sodium Level 141 MEQ/L Potassium Level 3.8 MEQ/L Chloride Level 106 MEQ/L Carbon Dioxide Level 24.2 MEQ/L Anion Gap 11 MEQ/L Estimat Glomerular Filtration Rate 51 ML/MIN Lactic Acid Level 2.0 mmol/L MDM Medical Decision Making Medical Screen Exam Complete: Yes Emergency Medical Condition: Yes Medical Record Reviewed: Yes (Past history confirmed) Interpretation(s) CBC & BMP Diagram 11/30/17 12:16 Total Protein 6.7, Albumin 3.4, Calcium Level 8.7, Alkaline Phosphatase 59, Aspartate Amino Transf (AST/SGOT) 15, Alanine Aminotransferase (ALT/SGPT) 23, Total Bilirubin 0.5 Last 24 hours Impressions Chest X-Ray 11/30/17 1202 Signed Impressions: CONCLUSION: Suspected atelectasis at the lung bases. Otherwise, no acute finding is identif ied. Maxillofacial CT 11/30/17 0000 Signed Impressions: CONCLUSION: 1. No adenopathy or mass is identified. A few small reactive lymph nodes are s een bilaterally. Mild soft tissue edema in the right submandibular region Differential Diagnosis Abscess, cellulitis, parotid stone Narrative Course We will check blood work, imaging and dose with antibiotics ed workup with small reactive lymph nodes and mild facial swelling on exam. Patient has very poor dentition but no obvious abscess or osteomyelitis. He has no obvious white count or fever. Will add Augmentin to antibiotic course and have follow with primary and dentist. Patient denies any new complaints and states that they are feeling better. Patient happy with care, all questions answered. Patient knows that follow up is incumbent on them and to return to the emergency room immediately if new or worsening symptoms develop. Patient given strict return precautions, vitals reviewed and are normal, agrees to further workup as an outpatient. Diagnosis Primary Impression: Right facial swelling Additional Impression: Dental infection Patient Instructions: General Instructions Additional Instructions: return as needed, tylenol as needed, follow with primary and dentist this week Med/Other Pt SpecificInfo: Prescription(s) given Scripts Amoxicillin-Clavulanate (Augmentin) 875-125 Mg Tab 1 TAB PO BID for Infection for 7 Days, #14 TAB 0 Refills Prov: Jaye Leong MD 11/30/17 Disposition: 01 DISCHARGE HOME Condition: Stable Jaye Leong MD Nov 30, 2017 12:43
[2017-11-30] MEDS ORDERED: OMEP20TA93 PO (12:47)
[2017-11-30] MEDS ORDERED: GABA800T PO (12:47)
[2017-11-30] MEDS ORDERED: IPRASOL NEB (12:47)
[2017-11-30] MEDS ORDERED: PRAZ2CAP PO (12:47)
[2017-11-30] MEDS ORDERED: MAGN400T2 PO (12:47)
[2017-11-30] MEDS ORDERED: LIPI40TA PO (12:47)
[2017-11-30] MEDS ORDERED: AMLO10 PO (12:47)
[2017-11-30] MEDS ORDERED: VITA1000 PO (12:47)
[2017-11-30] MEDS ORDERED: WARF-23 PO (12:47)
[2017-11-30] MEDS ORDERED: VENTAER INH (12:47)
[2017-11-30] MEDS ORDERED: MIRTA15 PO (12:47)
[2017-11-30] MEDS ORDERED: CAPS0.022 TOPICAL (12:47)
[2017-11-30] MEDS ORDERED: [UNRECOGNIZED DRUG - CODE] SWISH-SPIT (12:47)
[2017-11-30] MEDS ORDERED: DICL1GEL7 TOPICAL (12:47)
[2017-11-30] MEDS ORDERED: POLY99.0 EACH EYE (12:47)
[2017-11-30 12:51] LABS: ALBUMIN 3.4 GM/DL (3.4-5.0); AST (GOT) 15 U/L (15-37); BICARBONATE 24.2 MEQ/L (21.0-32.0); BLOOD UREA NITROGEN 20 MG/DL (7-18); CALCIUM 8.7 MG/DL (8.5-10.1); CHLORIDE 106 MEQ/L (98-107); CREATININE 1.38 MG/DL (0.60-1.30); GLOMERULAR FILTRATION RATE 51 ML/MIN (>89); GLUCOSE,RANDOM 98 MG/DL (74-106); SODIUM (NA) 141 MEQ/L (136-145)
[2017-11-30 12:53] LABS: ALT (GPT) 23 U/L (12-78)
[2017-11-30 12:55] LABS: ALKALINE PHOSPHATASE 59 U/L (45-117); TOTAL BILIRUBIN ADULT 0.5 MG/DL (0.2-1.0); TOTAL PROTEIN 6.7 GM/DL (6.4-8.2)
--- NOTE | 2017-11-30 12:59 | RADRPT ---
EXAM DATE: 11/30/2017 12:37 PM EDT AGE/SEX: 72 years / Male INDICATIONS: Palpitations today, headache for 3 weeks CLINICAL DATA: This is the patient's initial encounter. Patient reports that signs and symptoms have been present for 1 day and indicates a pain score of 6/10. MEDICAL/SURGICAL HISTORY: Chronic obstructive pulmonary disease. Non-responsive. COMPARISON: [facility] [place], CHEST SINGLE AP, 11/02/2017. . FINDINGS: Portable AP view of the chest demonstrates a normal size cardiac silhouette. EKG lines overlie the pa tient. Lungs are underinflated with likely atelectasis at the bases. No pleural effusion, airspace co nsolidation, or pneumothorax is identified. The bones and soft tissues demonstrate no acute finding. CONCLUSION: Suspected atelectasis at the lung bases. Otherwise, no acute finding is identified. Electronically signed by: Darryl Leong MD 11/30/2017 12:58 PM EDT
[2017-11-30] MEDS ORDERED: IOHEXOL 350 MG/ML 10 ML VIAL (for RAD DIAG) IVCONTRAST ONE (13:20)
[2017-11-30] MEDS ORDERED: SODIUM CHLOR 0.9% 1000 ML INJ 1,000 ML IV ONE (13:30)
--- NOTE | 2017-11-30 13:55 | RADRPT ---
EXAM DATE: 11/30/2017 1:26 PM EDT AGE/SEX: 72 years / Male INDICATIONS: Right facial swelling for five days. CLINICAL DATA: This is the patient's initial encounter. Patient reports that signs and symptoms have been present for 4 - 6 days and indicates a pain score of 3/10. MEDICAL/SURGICAL HISTORY: Cerebrovascular disease. Hypertension. Chronic obstructive pulmonar y disease. None. RADIATION DOSE: 29.28 CTDI (mGy) COMPARISON: No prior [place] exams available for comparison. TECHNIQUE: Contiguous images in the axial and coronal planes were obtained using helical multirow de tector technique with 95 ml Omnipaque 350 (iohexol) nonionic water-soluble contrast as a cumulative dose for multiple exams. Using automated exposure control and adjustment of the mA and/or kV accordi ng to patient size, radiation dose was kept as low as reasonably achievable to obtain optimal diagnos tic quality images. FINDINGS: Orbits: The orbital and infraorbital osseous structures are intact. The retroconal structures have a normal configuration. No radiopaque foreign bodies are seen. Nasal Bone: The nasal bone and maxillary spine are intact. Zygomatic Arches: Symmetric without evidence of fracture. Sinuses: The maxillary, ethmoid and frontal sinuses are intact. No air-fluid levels seen. Nasal Cavity: The nasal septum is intact and midline. The lacrimal ducts are intact. Soft Tissues: No radiopaque foreign bodies seen. Some induration of the fat right greater than left , in the submandibular region primarily. Intracranial: No intracranial air seen. Cribriform Plate: Grossly intact. Post Contrast: No abnormal areas of enhancement seen. CONCLUSION: 1. No adenopathy or mass is identified. A few small reactive lymph nodes are seen bilaterally. Mild soft tissue edema in the right submandibular region Electronically signed by: Juan Bazzi MD 11/30/2017 1:53 PM EDT
[2017-11-30] MEDS ORDERED: AUGM875T3 PO (14:06)
[2017-11-30] MEDS ORDERED: ACETAMINOPHEN 325 MG TAB PO ONE (14:45)
[2017-12-01] MEDS ORDERED: HYDR-3516 PO (17:32)
== END 2017-11-30 15:05 | disposition home or self-care (01) ==
LOC: NEPE 11:32
DX: R22.0 Localized swelling, mass and lump, head (principal); K08.89 Other specified disorders of teeth and supporting structures; I10 Essential (primary) hypertension; E78.00 Pure hypercholesterolemia, unspecified; J44.9 Chronic obstructive pulmonary disease, unspecified; Z86.73 Personal history of transient ischemic attack (TIA), and cerebral infarction without residual deficits; Z79.01 Long term (current) use of anticoagulants; Z79.899 Other long term (current) drug therapy
CPT/HCPCS: 70487; 71045; 80053; 83605; 85025; 96365; 96375; 99285; J2270; J2543; J7030; Q9967

== ENCOUNTER 2017-12-01 13:36 | Emergency (ER) | payer OTHER ==
[~2017-12-01 13:36] MED LIST changes: -ADVA115A INH; +AMLO10 PO; -ASPI-516 CHEW; -BUPR150T3 PO; +CAPS0.022 TOPICAL; +DICL1GEL7 TOPICAL; +GABA800T PO; -HYDR1CRE RECTAL; -IPRAAER INH; +IPRASOL NEB; +LIPI40TA PO; +MAGN400T2 PO; -MIRT1TAB PO; +MIRTA15 PO; +OMEP20TA93 PO; -OMEP40CA2 PO; +POLY99.0 EACH EYE; +PRAZ2CAP PO; -TRAM50TA PO; -TRAZ100T10 PO; +VENTAER INH; +VITA1000 PO; -WARF-21 PO; +[UNRECOGNIZED DRUG - CODE] SWISH-SPIT
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
[2017-12-01 13:58] VITALS: BP 165/74; PULSE 58; RESP 16; TEMP 97.8; O2SAT 93
[2017-12-01] MEDS ORDERED: CLINDAMYCIN 600 MG/NS PREMIX 50 ML IV ONE (14:00)
[2017-12-01] MEDS ORDERED: SODIUM CHLORID 0.9% 500 ML INJ 500 ML IV ONE (14:00)
[2017-12-01 14:29] LABS: AUTOMATED NEUTROPHIL # 4.8 TH/MM3 (1.8-7.7); BASOPHIL # 0.2 TH/MM3 (0-0.2); BASOPHIL % 2.6 % (0.0-2.0); EOSINOPHIL # 0.4 TH/MM3 (0-0.4); EOSINOPHIL % 4.8 % (0.0-4.0); HEMATOCRIT 35.7 % (39.0-51.0); LYMPH % 22.9 % (9.0-44.0); LYMPHOCYTE # 1.9 TH/MM3 (1.0-4.8); MEAN CELL VOLUME 87.6 FL (80.0-100.0); MEAN CORPUSCULAR HEMOGLOBIN 29.4 PG (27.0-34.0); MEAN CORPUSCULAR HGB CONC 33.6 % (32.0-36.0); MONO % 12.3 % (0.0-8.0); NEUT % 57.4 % (16.0-70.0); PLATELET COUNT 211 TH/MM3 (150-450); RED BLOOD COUNT 4.08 MIL/MM3 (4.50-5.90); RED CELL DISTRIBUTION WIDTH 13.6 % (11.6-17.2); WHITE BLOOD COUNT 8.4 TH/MM3 (4.0-11.0)
[2017-12-01 14:49] LABS: ALBUMIN 3.3 GM/DL (3.4-5.0); ALT (GPT) 23 U/L (12-78); AST (GOT) 16 U/L (15-37); BICARBONATE 27.4 MEQ/L (21.0-32.0); BLOOD UREA NITROGEN 16 MG/DL (7-18); CALCIUM 8.7 MG/DL (8.5-10.1); CHLORIDE 105 MEQ/L (98-107); CREATININE 1.24 MG/DL (0.60-1.30); GLOMERULAR FILTRATION RATE 57 ML/MIN (>89); GLUCOSE,RANDOM 88 MG/DL (74-106); SODIUM (NA) 141 MEQ/L (136-145)
[2017-12-01 14:59] LABS: ALKALINE PHOSPHATASE 57 U/L (45-117); TOTAL BILIRUBIN ADULT 0.4 MG/DL (0.2-1.0); TOTAL PROTEIN 6.8 GM/DL (6.4-8.2)
[2017-12-01 16:16] LABS: INTERNATIONAL NORMALIZED RATIO 2.3 RATIO
[2017-12-01] MEDS ORDERED: HYDR-3516 PO (17:32)
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
== END 2017-12-01 17:56 | disposition home or self-care (01) ==
LOC: NEPD 13:36
DX: F41.9 Anxiety disorder, unspecified (principal); K08.89 Other specified disorders of teeth and supporting structures; I10 Essential (primary) hypertension; E78.00 Pure hypercholesterolemia, unspecified; J44.9 Chronic obstructive pulmonary disease, unspecified; Z86.73 Personal history of transient ischemic attack (TIA), and cerebral infarction without residual deficits; Z79.2 Long term (current) use of antibiotics; Z79.01 Long term (current) use of anticoagulants; Z79.899 Other long term (current) drug therapy
CPT/HCPCS: 80053; 80307; 84443; 85025; 85610; 96365; 99284; J7040